=== PATIENT | male | born 1975 | race Caucasian/White ===

== ENCOUNTER → 2024-09-07 | Outpatient (CLI) | payer OTHER ==
[~2024-09-07] MED LIST: AMOXICILLIN500 MG PO; AUGMENTIN 875875 MG PO; BACTRIM DS 8001 TA1 PO; KEFLEX500 MG PO; MOTRIN800 MG PO; ULTRAM50 MG PO
== END | disposition home or self-care (01) ==
LOC: RAD 15:23
PROVIDERS: ATTEND Nurse Practitioner
DX: M47.815 Spondylosis without myelopathy or radiculopathy, thoracolumbar region (principal); M54.6 Pain in thoracic spine

== ENCOUNTER 2025-07-04 19:03 | Emergency (ER) | payer MEDICAID ==
[~2025-07-04] VITALS: Ht 182.8 cm; Wt 77.1 kg
[2025-07-04] MEDS ORDERED: PAROXETINE HCL20 MG PO (19:24)
[2025-07-04] MEDS ORDERED: OLANZAPINE10 MG PO (19:24)
[2025-07-04] MEDS ORDERED: GOOD NEIGHBOR L10 MG PO (19:24)
[2025-07-04] MEDS ORDERED: MAGNESIUM CITRATE 296 ML BOT PO ONE (20:05)
[2025-07-04] MEDS ORDERED: METHOCARBAMOL 500 MG TAB PO ONE (20:05)
[2025-07-04] MEDS ORDERED: METHOCARBAMOL500 M1 PO (20:13)
[2025-07-04] MEDS ORDERED: NAPROXEN250 MG PO (20:13)
[2025-07-04] MEDS ORDERED: MIRALAX POWDER17 G1 PO (20:13)
== END 2025-07-04 20:25 | disposition home or self-care (01) ==
LOC: ED 19:03
DX: K59.00 Constipation, unspecified (principal); M54.9 Dorsalgia, unspecified; Z79.899 Other long term (current) drug therapy